=== PATIENT | female | born 1985 | race Caucasian/White ===

== ENCOUNTER 2016-08-05 13:14 | Emergency (ER) | payer MEDICAID ==
[~2016-08-05] VITALS: Ht 170.2 cm; Wt 106.5 kg
[2016-08-05] MEDS ORDERED: ONDANSETRON 2MG/ML, 2ML ONE (13:54)
[2016-08-05] MEDS ORDERED: SODIUM CHLORIDE FLUSH 10ML SYR IVF ONE (14:00)
[2016-08-05] MEDS ORDERED: ONDANSETRON 2MG/ML, 2ML IVPush ONE (14:00)
[2016-08-05] MEDS ORDERED: SODIUM CHLORIDE 0.9% 1,000ML IVBOLUS ONE (14:00)
[2016-08-05 15:35] VITALS: BP 133/85
[2016-08-05 15:43] LABS: BLOOD UREA NITROGEN 10 mg/dL (7-18)
== END 2016-08-05 16:10 | disposition home or self-care (01) ==
LOC: ED 14:08
DX: R10.32 Left lower quadrant pain (principal); M79.661 Pain in right lower leg; G89.29 Other chronic pain; Z86.718 Personal history of other venous thrombosis and embolism
CPT/HCPCS: 36415; 73590; 76830; 80048; 81003; 82040; 84703; 85025; 93971; 96361; 96374; 99285; J2405; J7030

== ENCOUNTER 2017-05-27 15:41 | Emergency (ER) | payer MEDICAID ==
[~2017-05-27] VITALS: Ht 170.2 cm; Wt 120.9 kg
[2017-05-27 16:26] LABS: CULTURE INDICATED? YES; MICROSCOPIC AUTO
[2017-05-27 16:35] LABS: BASOPHILS # (AUTO) 0.02 x10^3/uL (0-0.1); BASOPHILS % (AUTO) 0 % (0-1); EOSINOPHILS # (AUTO) 0.22 x10^3/uL (0-0.4); EOSINOPHILS % (AUTO) 4 % (1-7); LYMPHOCYTES # (AUTO) 1.96 x10^3/uL (1-3.4); LYMPHOCYTES % (AUTO) 33 % (22-44); MD NO; MEAN CORPUSCULAR HEMOGLOBIN 29.8 pg (27.0-34.8); MEAN CORPUSCULAR HGB CONC 34.1 g/dL (32.4-35.8); MEAN CORPUSCULAR VOLUME 87.3 fL (80-100); MEAN PLATELET VOLUME 9.8 fL (7.4-10.4); MONOCYTES # (AUTO) 0.54 x10^3/uL (0.2-0.8); MONOCYTES % (AUTO) 9 % (2-9); NEUTROPHILS # (AUTO) 3.13 x10^3/uL (1.8-6.8); NEUTROPHILS % (AUTO) 53 % (42-75); PLATELET COUNT 301 x10^3/uL (130-400); RED BLOOD COUNT 4.83 x10^6/uL (3.82-5.3); RED CELL DISTRIBUTION WIDTH 12.6 % (9.6-15.2)
[2017-05-27 16:44] LABS: ALANINE AMINOTRANSFERASE 28 U/L (12-78); ALBUMIN 3.5 g/dL (3.4-5.0); ANION GAP 4 mmol/L (5-15); CALCIUM 8.4 mg/dL (8.5-10.1); CHLORIDE 106 mmol/L (98-107); CREATININE 0.71 mg/dL (0.55-1.02)
[2017-05-27 16:49] LABS: ALKALINE PHOSPHATASE 68 U/L (45-117); BILIRUBIN,TOTAL 0.4 mg/dL (0.2-1.0); TOTAL PROTEIN 7.1 g/dL (6.4-8.2)
[2017-05-27 17:38] VITALS: BP 115/79
== END 2017-05-27 17:40 | disposition home or self-care (01) ==
LOC: ED 17:09
DX: N30.90 Cystitis, unspecified without hematuria (principal); R19.7 Diarrhea, unspecified; R11.0 Nausea
CPT/HCPCS: 36415; 80053; 81001; 83690; 84703; 85025; 87086; 87147; 99284

== ENCOUNTER 2017-09-25 16:42 | Emergency (ER) | payer MEDICAID ==
[~2017-09-25] VITALS: Ht 170.2 cm; Wt 117.6 kg
[2017-09-25 17:25] LABS: BASOPHILS # (AUTO) 0.02 x10^3/uL (0-0.1); BASOPHILS % (AUTO) 0 % (0-1); EOSINOPHILS # (AUTO) 0.14 x10^3/uL (0-0.4); EOSINOPHILS % (AUTO) 2 % (1-7); LYMPHOCYTES # (AUTO) 1.94 x10^3/uL (1-3.4); LYMPHOCYTES % (AUTO) 32 % (22-44); MD NO; MEAN CORPUSCULAR HEMOGLOBIN 29.9 pg (27.0-34.8); MEAN CORPUSCULAR HGB CONC 34.2 g/dL (32.4-35.8); MEAN CORPUSCULAR VOLUME 87.4 fL (80-100); MEAN PLATELET VOLUME 10.1 fL (7.4-10.4); MONOCYTES # (AUTO) 0.46 x10^3/uL (0.2-0.8); MONOCYTES % (AUTO) 8 % (2-9); NEUTROPHILS % (AUTO) 59 % (42-75); PLATELET COUNT 302 x10^3/uL (130-400); RED BLOOD COUNT 5.09 x10^6/uL (3.82-5.3); RED CELL DISTRIBUTION WIDTH 13.3 % (9.6-15.2)
[2017-09-25 17:31] LABS: ALANINE AMINOTRANSFERASE 47 U/L (12-78); ALBUMIN 3.7 g/dL (3.4-5.0); ANION GAP 6 mmol/L (5-15); CALCIUM 8.4 mg/dL (8.5-10.1); CHLORIDE 111 mmol/L (98-107); CREATININE 0.76 mg/dL (0.55-1.02)
[2017-09-25 17:35] LABS: ALKALINE PHOSPHATASE 55 U/L (45-117); BILIRUBIN,TOTAL 0.4 mg/dL (0.2-1.0); TOTAL PROTEIN 7.2 g/dL (6.4-8.2)
[2017-09-25 17:59] LABS: T4 (THYROXINE) 9.3 mcg/dL (4.8-13.9)
[2017-09-25 18:08] LABS: THYROID STIMULATING HORMONE 0.934 mIU/L (0.358-3.740)
[2017-09-25 18:11] LABS: CULTURE INDICATED? YES; MICROSCOPIC INDICATED
[2017-09-25 20:11] VITALS: BP 125/76
== END 2017-09-25 20:13 | disposition home or self-care (01) ==
LOC: ED 19:31
DX: O23.11 Infections of bladder in pregnancy, first trimester (principal); R42 Dizziness and giddiness; Z3A.00 Weeks of gestation of pregnancy not specified; I82.409 Acute embolism and thrombosis of unspecified deep veins of unspecified lower extremity
CPT/HCPCS: 36415; 76801; 80053; 81001; 83690; 84436; 84443; 84702; 84703; 85025; 87086; 93005; 99285

== ENCOUNTER 2017-09-26 20:08 | Emergency (ER) | payer MEDICAID ==
[~2017-09-26] VITALS: Ht 170.2 cm; Wt 110.0 kg
[2017-09-26] MEDS ORDERED: MECLIZINE CHEWABLE 25 MG TAB PO ONE (20:30)
[2017-09-26] MEDS ORDERED: MECLIZINE CHEWABLE 25 MG TAB ONE (20:32)
[2017-09-26 20:37] VITALS: BP 140/82
[2017-09-26 21:01] LABS: ALBUMIN 3.8 g/dL (3.4-5.0); ANION GAP 7 mmol/L (5-15); CALCIUM 8.8 mg/dL (8.5-10.1); CHLORIDE 110 mmol/L (98-107)
[2017-09-26 21:02] LABS: BASOPHILS # (AUTO) 0.02 x10^3/uL (0-0.1); BASOPHILS % (AUTO) 0 % (0-1); EOSINOPHILS # (AUTO) 0.07 x10^3/uL (0-0.4); EOSINOPHILS % (AUTO) 1 % (1-7); LYMPHOCYTES # (AUTO) 1.35 x10^3/uL (1-3.4); LYMPHOCYTES % (AUTO) 25 % (22-44); MD NO; MEAN CORPUSCULAR HEMOGLOBIN 29.5 pg (27.0-34.8); MEAN CORPUSCULAR HGB CONC 33.2 g/dL (32.4-35.8); MEAN CORPUSCULAR VOLUME 88.9 fL (80-100); MEAN PLATELET VOLUME 10.3 fL (7.4-10.4); MONOCYTES # (AUTO) 0.41 x10^3/uL (0.2-0.8); MONOCYTES % (AUTO) 8 % (2-9); NEUTROPHILS # (AUTO) 3.59 x10^3/uL (1.8-6.8); NEUTROPHILS % (AUTO) 66 % (42-75); PLATELET COUNT 285 x10^3/uL (130-400); RED CELL DISTRIBUTION WIDTH 13.1 % (9.6-15.2)
[2017-09-26 21:19] LABS: ALANINE AMINOTRANSFERASE 63 U/L (12-78); ALKALINE PHOSPHATASE 55 U/L (45-117); BILIRUBIN,TOTAL 0.4 mg/dL (0.2-1.0); CREATININE 0.68 mg/dL (0.55-1.02); TOTAL PROTEIN 6.9 g/dL (6.4-8.2)
== END 2017-09-27 00:47 | disposition home or self-care (01) ==
LOC: ED 21:29
DX: O26.891 Other specified pregnancy related conditions, first trimester (principal); R42 Dizziness and giddiness; O20.9 Hemorrhage in early pregnancy, unspecified; Z86.718 Personal history of other venous thrombosis and embolism; Z3A.00 Weeks of gestation of pregnancy not specified
CPT/HCPCS: 36415; 76830; 80053; 84702; 85025; 99285

== ENCOUNTER 2017-09-29 19:49 | Emergency (ER) | payer MEDICAID ==
[~2017-09-29] VITALS: Ht 170.2 cm; Wt 117.6 kg
[2017-09-29 19:51] VITALS: BP 149/97
[2017-09-29 20:34] LABS: BASOPHILS # (AUTO) 0.05 x10^3/uL (0-0.1); BASOPHILS % (AUTO) 1 % (0-1); EOSINOPHILS # (AUTO) 0.14 x10^3/uL (0-0.4); EOSINOPHILS % (AUTO) 2 % (1-7); LYMPHOCYTES # (AUTO) 1.61 x10^3/uL (1-3.4); LYMPHOCYTES % (AUTO) 24 % (22-44); MD NO; MEAN CORPUSCULAR HEMOGLOBIN 29.8 pg (27.0-34.8); MEAN CORPUSCULAR HGB CONC 33.8 g/dL (32.4-35.8); MEAN CORPUSCULAR VOLUME 88.2 fL (80-100); MEAN PLATELET VOLUME 10.2 fL (7.4-10.4); MONOCYTES # (AUTO) 0.48 x10^3/uL (0.2-0.8); MONOCYTES % (AUTO) 7 % (2-9); NEUTROPHILS # (AUTO) 4.58 x10^3/uL (1.8-6.8); NEUTROPHILS % (AUTO) 67 % (42-75); PLATELET COUNT 277 x10^3/uL (130-400); RED CELL DISTRIBUTION WIDTH 13.6 % (9.6-15.2)
== END 2017-09-29 21:31 | disposition home or self-care (01) ==
LOC: ED 20:15
DX: O26.891 Other specified pregnancy related conditions, first trimester (principal); O46.91 Antepartum hemorrhage, unspecified, first trimester; Z3A.01 Less than 8 weeks gestation of pregnancy
CPT/HCPCS: 36415; 76801; 84702; 85025; 99285

== ENCOUNTER 2017-11-18 08:54 | Emergency (ER) | payer MEDICAID ==
[~2017-11-18] VITALS: Ht 170.2 cm; Wt 110.0 kg
[2017-11-18] MEDS ORDERED: SODIUM CHLORIDE FLUSH 10ML SYR IVF ONE (09:30)
[2017-11-18] MEDS ORDERED: ASPIRIN 81 MG TABLET CHEW ONE (09:30)
[2017-11-18] MEDS ORDERED: MECLIZINE CHEWABLE 25 MG TAB ONE (09:30)
[2017-11-18] MEDS ORDERED: ASPIRIN 81 MG TABLET CHEW PO ONE (09:30)
[2017-11-18] MEDS ORDERED: SODIUM CHLORIDE 0.9% 1,000ML IVBOLUS ONE (09:30)
[2017-11-18] MEDS ORDERED: MECLIZINE CHEWABLE 25 MG TAB PO ONE (09:30)
[2017-11-18 09:37] LABS: BASOPHILS # (AUTO) 0.04 x10^3/uL (0-0.1); BASOPHILS % (AUTO) 1 % (0-1); EOSINOPHILS # (AUTO) 0.15 x10^3/uL (0-0.4); EOSINOPHILS % (AUTO) 2 % (1-7); LYMPHOCYTES # (AUTO) 2.15 x10^3/uL (1-3.4); LYMPHOCYTES % (AUTO) 30 % (22-44); MD NO; MEAN CORPUSCULAR HEMOGLOBIN 29.6 pg (27.0-34.8); MEAN CORPUSCULAR HGB CONC 33.8 g/dL (32.4-35.8); MEAN CORPUSCULAR VOLUME 87.5 fL (80-100); MEAN PLATELET VOLUME 10.4 fL (7.4-10.4); MONOCYTES # (AUTO) 0.42 x10^3/uL (0.2-0.8); MONOCYTES % (AUTO) 6 % (2-9); NEUTROPHILS % (AUTO) 61 % (42-75); PLATELET COUNT 263 x10^3/uL (130-400); RED BLOOD COUNT 4.74 x10^6/uL (3.82-5.3); RED CELL DISTRIBUTION WIDTH 12.6 % (9.6-15.2)
[2017-11-18 09:42] LABS: ALBUMIN 3.4 g/dL (3.4-5.0); ANION GAP 8 mmol/L (5-15); CALCIUM 9.1 mg/dL (8.5-10.1); CHLORIDE 109 mmol/L (98-107); CREATININE 0.59 mg/dL (0.55-1.02)
[2017-11-18 09:46] LABS: TROPONIN I < 0.015 ng/mL (0.000-0.045)
[2017-11-18 10:07] LABS: MICROSCOPIC AUTO
[2017-11-18 10:10] LABS: CULTURE INDICATED? YES
[2017-11-18 11:30] VITALS: BP 122/70
== END 2017-11-18 11:39 | disposition home or self-care (01) ==
LOC: ED 09:31
DX: R55 Syncope and collapse (principal); R53.1 Weakness; R07.9 Chest pain, unspecified; I10 Essential (primary) hypertension; Z86.718 Personal history of other venous thrombosis and embolism
CPT/HCPCS: 36415; 71045; 80048; 81001; 82040; 82962; 84484; 84703; 85025; 85379; 87086; 93005; 99285; J7030

== ENCOUNTER 2017-12-22 18:31 | Emergency (ER) | payer MEDICAID ==
[~2017-12-22] VITALS: Ht 175.3 cm; Wt 112.7 kg
[2017-12-22 18:43] VITALS: BP 148/93
[2017-12-22 19:34] LABS: BASOPHILS # (AUTO) 0.02 x10^3/uL (0-0.1); BASOPHILS % (AUTO) 0 % (0-1); EOSINOPHILS # (AUTO) 0.16 x10^3/uL (0-0.4); EOSINOPHILS % (AUTO) 3 % (1-7); LYMPHOCYTES % (AUTO) 36 % (22-44); MD NO; MEAN CORPUSCULAR HEMOGLOBIN 29.9 pg (27.0-34.8); MEAN CORPUSCULAR HGB CONC 34.4 g/dL (32.4-35.8); MEAN CORPUSCULAR VOLUME 86.9 fL (80-100); MONOCYTES # (AUTO) 0.39 x10^3/uL (0.2-0.8); MONOCYTES % (AUTO) 8 % (2-9); NEUTROPHILS # (AUTO) 2.77 x10^3/uL (1.8-6.8); NEUTROPHILS % (AUTO) 53 % (42-75); PLATELET COUNT 290 x10^3/uL (130-400); RED BLOOD COUNT 5.13 x10^6/uL (3.82-5.3); RED CELL DISTRIBUTION WIDTH 12.7 % (9.6-15.2)
[2017-12-22 19:36] LABS: ALBUMIN 3.8 g/dL (3.4-5.0); ANION GAP 7 mmol/L (5-15); CHLORIDE 109 mmol/L (98-107)
[2017-12-22 19:40] LABS: TROPONIN I < 0.015 ng/mL (0.000-0.045)
== END 2017-12-22 20:32 | disposition home or self-care (01) ==
LOC: ED 20:05
DX: R00.2 Palpitations (principal); R42 Dizziness and giddiness; I10 Essential (primary) hypertension; Z86.718 Personal history of other venous thrombosis and embolism
CPT/HCPCS: 36415; 71046; 80048; 82040; 84484; 85025; 93005; 99285

== ENCOUNTER 2018-02-28 19:53 | Emergency (ER) | payer MEDICAID ==
[~2018-02-28] VITALS: Ht 167.6 cm; Wt 106.0 kg
[2018-02-28 20:49] LABS: BASOPHILS # (AUTO) 0.04 x10^3/uL (0-0.1); BASOPHILS % (AUTO) 1 % (0-1); EOSINOPHILS # (AUTO) 0.12 x10^3/uL (0-0.4); EOSINOPHILS % (AUTO) 2 % (1-7); LYMPHOCYTES # (AUTO) 1.73 x10^3/uL (1-3.4); LYMPHOCYTES % (AUTO) 28 % (22-44); MD NO; MEAN CORPUSCULAR HGB CONC 34.2 g/dL (32.4-35.8); MEAN CORPUSCULAR VOLUME 87.8 fL (80-100); MONOCYTES # (AUTO) 0.41 x10^3/uL (0.2-0.8); MONOCYTES % (AUTO) 7 % (2-9); NEUTROPHILS # (AUTO) 3.77 x10^3/uL (1.8-6.8); NEUTROPHILS % (AUTO) 62 % (42-75); PLATELET COUNT 254 x10^3/uL (130-400); RED BLOOD COUNT 4.74 x10^6/uL (3.82-5.3)
[2018-02-28 20:57] LABS: ALBUMIN 3.5 g/dL (3.4-5.0); ANION GAP 6 mmol/L (5-15); CALCIUM 8.3 mg/dL (8.5-10.1); CHLORIDE 110 mmol/L (98-107); CREATININE 0.76 mg/dL (0.55-1.02)
[2018-02-28 21:01] LABS: TROPONIN I < 0.015 ng/mL (0.000-0.045)
[2018-02-28 22:30] VITALS: BP 136/91
== END 2018-02-28 22:32 | disposition home or self-care (01) ==
LOC: ED 21:58
DX: R07.89 Other chest pain (principal); R42 Dizziness and giddiness; I10 Essential (primary) hypertension
CPT/HCPCS: 36415; 71045; 80048; 82040; 84484; 84703; 85025; 93005; 99284

== ENCOUNTER 2018-04-10 18:34 | Emergency (ER) | payer MEDICAID ==
[~2018-04-10] VITALS: Ht 170.2 cm; Wt 113.7 kg
[2018-04-10] MEDS ORDERED: MULTI VIT (18:54)
[2018-04-10 19:18] LABS: BASOPHILS # (AUTO) 0.06 x10^3/uL (0-0.1); BASOPHILS % (AUTO) 1 % (0-1); EOSINOPHILS # (AUTO) 0.12 x10^3/uL (0-0.4); EOSINOPHILS % (AUTO) 2 % (1-7); LYMPHOCYTES # (AUTO) 1.54 x10^3/uL (1-3.4); LYMPHOCYTES % (AUTO) 29 % (22-44); MD NO; MEAN CORPUSCULAR HEMOGLOBIN 30.3 pg (27.0-34.8); MEAN CORPUSCULAR HGB CONC 34.4 g/dL (32.4-35.8); MEAN CORPUSCULAR VOLUME 88.2 fL (80-100); MEAN PLATELET VOLUME 9.8 fL (7.4-10.4); MONOCYTES # (AUTO) 0.37 x10^3/uL (0.2-0.8); MONOCYTES % (AUTO) 7 % (2-9); NEUTROPHILS % (AUTO) 60 % (42-75); PLATELET COUNT 296 x10^3/uL (130-400); RED BLOOD COUNT 4.95 x10^6/uL (3.82-5.3); RED CELL DISTRIBUTION WIDTH 12.8 % (9.6-15.2)
[2018-04-10 19:30] LABS: CHLORIDE 108 mmol/L (98-107)
--- NOTE | 2018-04-10 19:30 | NUR ---
FIRST CONTACT WITH PT. PT C/O DIZZINESS AND FATIGUE X 2 DAYS. PT DENIES ANY PAIN, V, D, FEVER, CP AT THIS TIME. PT AOX4. RESPS EVEN AND UNLABORED. NEURO INTACT. ALL MONITORS IN PLACE. CALL LIGHT WITHIN REACH.
[2018-04-10 19:31] LABS: ALANINE AMINOTRANSFERASE 22 U/L (12-78); ALBUMIN 3.8 g/dL (3.4-5.0); ANION GAP 6 mmol/L (5-15); CALCIUM 8.7 mg/dL (8.5-10.1); CREATININE 0.67 mg/dL (0.55-1.02)
[2018-04-10 19:33] LABS: ALKALINE PHOSPHATASE 74 U/L (45-117); BILIRUBIN,TOTAL 0.8 mg/dL (0.2-1.0); TOTAL PROTEIN 7.2 g/dL (6.4-8.2)
[2018-04-10] MEDS ORDERED: MECLIZINE CHEWABLE 25 MG TAB ONE (19:46)
--- NOTE | 2018-04-10 19:50 | NUR ---
PT MEDICATED PER EMAR. PT TOLERATED WELL. PT DENIES ANY PAIN, NEEDS AND CONCERNS AT THIS TIME. ALL MONITORS IN PLACE. CALL LIGHT WITHIN REACH.
[2018-04-10] MEDS ORDERED: MECLIZINE CHEWABLE 25 MG TAB PO ONE (20:00)
--- NOTE | 2018-04-10 20:43 | NUR ---
PRECEPTOR NOTE: LISY ALEXANDRE AT BEDSIDE TO UPDATE PT WITH POC AND RESULTS.
--- NOTE | 2018-04-10 20:43 | NUR ---
PT C/O DIZZINESS STILL AFTER MED. LIYS ALEXANDRE NOTIFIED AND AT BEDSIDE AT THIS TIME. LISY ALEXANDRE EXPLAINING ALL RESULTS. AWAITING DC NOW.
[2018-04-10 20:56] VITALS: BP 110/68
--- NOTE | 2018-04-10 21:03 | NUR ---
PT GIVEN DC INSTRCUTIONS AND SCRIPTS. PT EDUCATED REGARDING DC MEDICATIONS WHICH ARE ZOFRAN AND ANTIVERT AT DC. PT AMB TO DC WITH STEADY GAIT WITH PT'S . PT AOX4. RESPS EVEN AND UNLABORED. NO ACUTE DISTRESS AT DC.
== END 2018-04-10 20:58 | disposition home or self-care (01) ==
LOC: ED 19:03
DX: R42 Dizziness and giddiness (principal)
CPT/HCPCS: 36415; 80053; 85025; 93005; 99283; 99284

== ENCOUNTER 2018-04-26 18:59 | Emergency (ER) | payer MEDICAID ==
[~2018-04-26] VITALS: Ht 170.2 cm; Wt 112.0 kg
[~2018-04-26 18:59] MED LIST: MULTI VIT
--- NOTE | 2018-04-26 19:56 | NUR ---
PT ON VITALS MONITORS. PT IN HOSPITAL GOWN. FAMILY AT BEDSIDE. PT AWAITING ERP EVAL.
[2018-04-26] MEDS ORDERED: SODIUM CHLORIDE FLUSH 10ML SYR IVF ONE (20:30)
[2018-04-26 20:39] LABS: BASOPHILS # (AUTO) 0.05 x10^3/uL (0-0.1); BASOPHILS % (AUTO) 1 % (0-1); EOSINOPHILS # (AUTO) 0.11 x10^3/uL (0-0.4); EOSINOPHILS % (AUTO) 3 % (1-7); LYMPHOCYTES # (AUTO) 1.36 x10^3/uL (1-3.4); LYMPHOCYTES % (AUTO) 33 % (22-44); MD NO; MEAN CORPUSCULAR HEMOGLOBIN 29.4 pg (27.0-34.8); MEAN CORPUSCULAR VOLUME 89.1 fL (80-100); MONOCYTES # (AUTO) 0.34 x10^3/uL (0.2-0.8); MONOCYTES % (AUTO) 8 % (2-9); NEUTROPHILS # (AUTO) 2.33 x10^3/uL (1.8-6.8); NEUTROPHILS % (AUTO) 55 % (42-75); PLATELET COUNT 278 x10^3/uL (130-400); RED BLOOD COUNT 4.83 x10^6/uL (3.82-5.3); RED CELL DISTRIBUTION WIDTH 12.9 % (9.6-15.2)
[2018-04-26 20:46] LABS: ALANINE AMINOTRANSFERASE 16 U/L (12-78); ALBUMIN 3.6 g/dL (3.4-5.0); ANION GAP 4 mmol/L (5-15); CALCIUM 8.5 mg/dL (8.5-10.1); CHLORIDE 110 mmol/L (98-107); CREATININE 0.71 mg/dL (0.55-1.02)
[2018-04-26 20:51] LABS: ALKALINE PHOSPHATASE 57 U/L (45-117); BILIRUBIN,TOTAL 0.4 mg/dL (0.2-1.0); TOTAL PROTEIN 6.8 g/dL (6.4-8.2); TROPONIN I < 0.015 ng/mL (0.000-0.045)
--- NOTE | 2018-04-26 21:14 | NUR ---
PT ABLE TO PROVIDE URINE SAMPLE WHICH HAS BEEN SENT TO LAB.
[2018-04-26 21:34] LABS: MICROSCOPIC AUTO
[2018-04-26 21:35] LABS: CULTURE INDICATED? NO
[2018-04-26] MEDS ORDERED: MECLIZINE CHEWABLE 25 MG TAB PO ONE (22:00)
[2018-04-26 22:23] VITALS: BP 132/81
== END 2018-04-26 22:32 | disposition home or self-care (01) ==
LOC: ED 19:52
DX: R42 Dizziness and giddiness (principal); I10 Essential (primary) hypertension; Z86.718 Personal history of other venous thrombosis and embolism
CPT/HCPCS: 36415; 70450; 80053; 81001; 84484; 85025; 93005; 99284

== ENCOUNTER 2018-05-21 02:10 | Emergency (ER) | payer MEDICAID ==
[~2018-05-21] VITALS: Ht 170.2 cm; Wt 110.0 kg
[2018-05-21 02:19] VITALS: BP 147/96
[2018-05-21 02:37] LABS: BASOPHILS # (AUTO) 0.02 x10^3/uL (0-0.1); BASOPHILS % (AUTO) 0 % (0-1); EOSINOPHILS # (AUTO) 0.19 x10^3/uL (0-0.4); EOSINOPHILS % (AUTO) 3 % (1-7); LYMPHOCYTES # (AUTO) 2.07 x10^3/uL (1-3.4); LYMPHOCYTES % (AUTO) 35 % (22-44); MD NO; MEAN CORPUSCULAR HEMOGLOBIN 30.3 pg (27.0-34.8); MEAN CORPUSCULAR HGB CONC 34.1 g/dL (32.4-35.8); MEAN PLATELET VOLUME 10.4 fL (7.4-10.4); MONOCYTES # (AUTO) 0.46 x10^3/uL (0.2-0.8); MONOCYTES % (AUTO) 8 % (2-9); NEUTROPHILS # (AUTO) 3.22 x10^3/uL (1.8-6.8); NEUTROPHILS % (AUTO) 54 % (42-75); PLATELET COUNT 252 x10^3/uL (130-400); RED BLOOD COUNT 4.68 x10^6/uL (3.82-5.3); RED CELL DISTRIBUTION WIDTH 13.2 % (9.6-15.2)
[2018-05-21 02:46] LABS: ALBUMIN 3.7 g/dL (3.4-5.0); ANION GAP 5 mmol/L (5-15); CALCIUM 8.2 mg/dL (8.5-10.1); CHLORIDE 112 mmol/L (98-107)
[2018-05-21 02:50] LABS: TROPONIN I < 0.015 ng/mL (0.000-0.045)
== END 2018-05-21 04:39 ==
LOC: ED 04:33
DX: R07.89 Other chest pain (principal); I10 Essential (primary) hypertension
CPT/HCPCS: 36415; 71045; 80048; 82040; 84484; 85025; 93005; 99284

== ENCOUNTER 2018-06-15 03:01 | Emergency (ER) | payer MEDICAID ==
[~2018-06-15] VITALS: Ht 170.2 cm; Wt 102.0 kg
[2018-06-15 03:10] VITALS: BP 122/77
--- NOTE | 2018-06-15 03:22 | NUR ---
THROBBING HEADACHE, WORSE WHEN STANDING. NO VISUAL CHANGES. STATES RECENTLY DX WITH WITH PODS, SUFFERS DIZZINESS WHEN STANDING. MD AT BESIDE, CALL LIGHT IN REACH
[2018-06-15] MEDS ORDERED: DIPHENHYDRAMINE 50 MG/ML, 1ML ONE (03:27)
[2018-06-15] MEDS ORDERED: KETOROLAC 30 MG/1 ML ONE (03:27)
[2018-06-15] MEDS ORDERED: METOCLOPRAMIDE 10MG TABLET ONE (03:27)
[2018-06-15] MEDS ORDERED: KETOROLAC 30 MG/1 ML IM ONE (03:30)
[2018-06-15] MEDS ORDERED: METOCLOPRAMIDE 10MG TABLET PO ONE (03:30)
[2018-06-15] MEDS ORDERED: DIPHENHYDRAMINE 50 MG/ML, 1ML IM ONE (03:30)
--- NOTE | 2018-06-15 03:40 | NUR ---
PT REFUSED MEDS, STATES THEY MAKE HER HEART RATE GO UP, WANTS TYLENOL INSTEAD, NOTIFIED
[2018-06-15] MEDS ORDERED: ACETAMINOPHEN 325 MG TABLET ONE (03:44)
[2018-06-15] MEDS ORDERED: ACETAMINOPHEN 325 MG TABLET PO ONE (04:00)
--- NOTE | 2018-06-15 04:13 | NUR ---
Patient/Caregiver given discharge instructions and they have confirmed that they understand the instructions. Patient ambulatory with steady gait.
== END 2018-06-15 04:15 | disposition home or self-care (01) ==
LOC: ED 04:00
DX: G43.C0 Periodic headache syndromes in child or adult, not intractable (principal); I10 Essential (primary) hypertension
CPT/HCPCS: 99283

== ENCOUNTER 2018-11-04 17:40 | Emergency (ER) | payer MEDICAID ==
[~2018-11-04] VITALS: Ht 170.2 cm; Wt 107.0 kg
[2018-11-04 18:57] VITALS: BP 124/79
== END 2018-11-04 19:25 | disposition home or self-care (01) ==
LOC: ED 19:05
DX: R55 Syncope and collapse (principal); R42 Dizziness and giddiness; R11.0 Nausea; I10 Essential (primary) hypertension; Z86.718 Personal history of other venous thrombosis and embolism
CPT/HCPCS: 36415; 80048; 82040; 84703; 85025; 93005; 99284

== ENCOUNTER 2019-01-20 00:38 | Emergency (ER) | payer MEDICAID ==
[~2019-01-20] VITALS: Ht 170.2 cm; Wt 114.0 kg
--- NOTE | 2019-01-20 00:43 | NUR ---
TONNY HARRIS FROM HER APARTMENT WITH C/I MID LOWER BACK PAIN X 1 MONTH, WORSE TODAY. PT SAW PMD 01/16/19 FOR SPECIALIST REFERRAL AND APPOINTMENT WILL BE 1 YEAR OUT. MONITORS APPLIED, SIDERAILS UP X2, CALL LIGHT WITHIN REACH
[2019-01-20 00:46] VITALS: BP 134/82
== END 2019-01-20 02:40 | disposition home or self-care (01) ==
LOC: ED 02:30
DX: G89.29 Other chronic pain (principal); M54.16 Radiculopathy, lumbar region; I10 Essential (primary) hypertension; F43.10 Post-traumatic stress disorder, unspecified; Z86.718 Personal history of other venous thrombosis and embolism
CPT/HCPCS: 72110; 99283

== ENCOUNTER 2019-01-24 19:02 | Emergency (ER) | payer MEDICAID ==
[~2019-01-24] VITALS: Ht 162.6 cm; Wt 109.0 kg
[2019-01-24 19:14] VITALS: BP 141/86
--- NOTE | 2019-01-24 19:24 | NUR ---
Pt would not like to be roomed and would not like to be seen. Pt is leaving and does not want to be seen by an md. This rn educated and pt still refusing. "i just needed to get my blood pressure checked, it looks like its all good."
== END 2019-01-24 19:26 | disposition left against medical advice (07) ==
LOC: ED 19:20
DX: R42 Dizziness and giddiness (principal); Z53.21 Procedure and treatment not carried out due to patient leaving prior to being seen by health care provider
CPT/HCPCS: 93005

== ENCOUNTER 2019-04-24 17:01 | Emergency (ER) | payer MEDICAID ==
[~2019-04-24] VITALS: Ht 170.2 cm; Wt 119.5 kg
--- NOTE | 2019-04-24 17:23 | NUR ---
FIRST CONTACT WITH PT. PT C/O DIZZINESS, FATIGUE AND HEART PALPITATIONS WORSENING OVER THE LAST COUPLE DAYS. HX POTS. PT'S AOX4. RESPS EVEN AND UNLABORED. ALL MONITORS IN PLACE. CALL LIGHT WITHIN REACH. NSR RATE 80'S ON INFORMATION SYSTEMS MANAGER AT THIS TIME.
[2019-04-24] MEDS ORDERED: SODIUM CHLORIDE 0.9% 1,000ML IVBOLUS ONE (17:30)
[2019-04-24] MEDS ORDERED: MECLIZINE CHEWABLE 25 MG TAB PO ONE (17:30)
[2019-04-24] MEDS ORDERED: SODIUM CHLORIDE FLUSH 10ML SYR IVF ONE (17:30)
--- NOTE | 2019-04-24 17:35 | NUR ---
EKG DONE AT BEDSIDE BY EMT.
--- NOTE | 2019-04-24 17:42 | NUR ---
PT REFUSED MEDICATIONS. PT STATES"I DON'T WANNA TAKE ANY MEDS. JUST FLUIDS."
--- NOTE | 2019-04-24 17:54 | NUR ---
PT AMB TO BR AND BACK TO ROOM WITH STEDAY GAIT. UA SENT.
--- NOTE | 2019-04-24 17:54 | NUR ---
NS INFUSING AT THIS TIME. PT TOLERATED WELL.
[2019-04-24 18:14] LABS: MICROSCOPIC NOT IND
[2019-04-24 18:17] LABS: BASOPHILS # (AUTO) 0.05 x10^3/uL (0-0.1); BASOPHILS % (AUTO) 1 % (0-1); EOSINOPHILS # (AUTO) 0.13 x10^3/uL (0-0.4); EOSINOPHILS % (AUTO) 2 % (1-7); LYMPHOCYTES # (AUTO) 2.11 x10^3/uL (1-3.4); LYMPHOCYTES % (AUTO) 33 % (22-44); MD NO; MEAN CORPUSCULAR HEMOGLOBIN 29.9 pg (27.0-34.8); MEAN CORPUSCULAR HGB CONC 33.6 g/dL (32.4-35.8); MEAN CORPUSCULAR VOLUME 88.9 fL (80-100); MEAN PLATELET VOLUME 10.8 fL (7.4-10.4); MONOCYTES # (AUTO) 0.43 x10^3/uL (0.2-0.8); MONOCYTES % (AUTO) 7 % (2-9); NEUTROPHILS # (AUTO) 3.74 x10^3/uL (1.8-6.8); NEUTROPHILS % (AUTO) 58 % (42-75); PLATELET COUNT 278 x10^3/uL (130-400); RED BLOOD COUNT 5.12 x10^6/uL (3.82-5.3); RED CELL DISTRIBUTION WIDTH 13.4 % (9.6-15.2)
[2019-04-24 18:17] LABS: CULTURE INDICATED? NO
[2019-04-24 18:22] LABS: ALBUMIN 3.9 g/dL (3.4-5.0); ANION GAP 3 mmol/L (5-15); CALCIUM 8.9 mg/dL (8.5-10.1); CHLORIDE 109 mmol/L (98-107); CREATININE 0.68 mg/dL (0.55-1.02)
[2019-04-24 18:24] VITALS: BP 141/83
[2019-04-24] MEDS ORDERED: PLEASE ENTER ALLERGIES MC SCH (18:30)
--- NOTE | 2019-04-24 18:34 | NUR ---
PT RESTING IN [facility]. PT'S AOX4. RESPS EVEN AND UNLABORED. ALL MONITORS IN PLACE. CALL LIGHT WITHIN REACH.
--- NOTE | 2019-04-24 18:54 | NUR ---
REPORT GIVEN TO CEE AVILA.
== END 2019-04-24 19:22 | disposition home or self-care (01) ==
LOC: ED 18:33
DX: R42 Dizziness and giddiness (principal); R00.2 Palpitations; F43.10 Post-traumatic stress disorder, unspecified
CPT/HCPCS: 36415; 80048; 81003; 82040; 84703; 85025; 93005; 96360; 99284; J7030

== ENCOUNTER 2019-05-02 23:31 | Emergency (ER) | payer MEDICAID ==
[~2019-05-02] VITALS: Ht 170.2 cm; Wt 115.0 kg
[2019-05-02 23:34] VITALS: BP 121/96
--- NOTE | 2019-05-02 23:41 | NUR ---
Patient BIB [facility] c/o dizziness and intermittent CP. Patient states she has a hx of POTS and feels dizzy often. Normally she lays down and the dizziness resides, but today it did not and she felt intermittent CP with it. Pain increased when walking and upon palpation. Patient is in NAD. Respirations even and unlabored.
[2019-05-02 23:49] LABS: BASOPHILS # (AUTO) 0.01 x10^3/uL (0-0.1); BASOPHILS % (AUTO) 0 % (0-1); EOSINOPHILS # (AUTO) 0.12 x10^3/uL (0-0.4); EOSINOPHILS % (AUTO) 2 % (1-7); LYMPHOCYTES # (AUTO) 2.32 x10^3/uL (1-3.4); LYMPHOCYTES % (AUTO) 34 % (22-44); MD NO; MEAN CORPUSCULAR HEMOGLOBIN 30.1 pg (27.0-34.8); MEAN CORPUSCULAR HGB CONC 34.2 g/dL (32.4-35.8); MEAN CORPUSCULAR VOLUME 87.9 fL (80-100); MEAN PLATELET VOLUME 9.6 fL (7.4-10.4); MONOCYTES # (AUTO) 0.52 x10^3/uL (0.2-0.8); MONOCYTES % (AUTO) 8 % (2-9); NEUTROPHILS # (AUTO) 3.84 x10^3/uL (1.8-6.8); NEUTROPHILS % (AUTO) 56 % (42-75); PLATELET COUNT 292 x10^3/uL (130-400); RED BLOOD COUNT 4.79 x10^6/uL (3.82-5.3); RED CELL DISTRIBUTION WIDTH 12.9 % (9.6-15.2)
[2019-05-03 00:02] LABS: ANION GAP 7 mmol/L (5-15); CALCIUM 8.8 mg/dL (8.5-10.1); CHLORIDE 110 mmol/L (98-107); CREATININE 0.62 mg/dL (0.55-1.02)
[2019-05-03 00:06] LABS: TROPONIN I < 0.015 ng/mL (0.000-0.045)
--- NOTE | 2019-05-03 00:34 | NUR ---
Discharge instructions given. All questions and concerns addressed. Patient ambulatory with a steady gait. Belongings with patient.
== END 2019-05-03 00:35 | disposition home or self-care (01) ==
LOC: ED 05-03
DX: R42 Dizziness and giddiness (principal); R07.89 Other chest pain; I10 Essential (primary) hypertension; Z86.718 Personal history of other venous thrombosis and embolism
CPT/HCPCS: 36415; 71046; 80048; 84484; 85025; 93005; 99284

== ENCOUNTER 2019-05-09 23:51 | Emergency (ER) | payer MEDICAID ==
[~2019-05-09] VITALS: Ht 170.2 cm; Wt 120.6 kg
[2019-05-10] MEDS ORDERED: ACETAMINOPHEN 325 MG TABLET PO ONE
[2019-05-10 00:01] VITALS: BP 141/87
[2019-05-10 00:16] LABS: BASOPHILS # (AUTO) 0.04 x10^3/uL (0-0.1); BASOPHILS % (AUTO) 1 % (0-1); EOSINOPHILS # (AUTO) 0.13 x10^3/uL (0-0.4); EOSINOPHILS % (AUTO) 2 % (1-7); LYMPHOCYTES # (AUTO) 2.51 x10^3/uL (1-3.4); LYMPHOCYTES % (AUTO) 33 % (22-44); MD NO; MEAN CORPUSCULAR VOLUME 88.2 fL (80-100); MEAN PLATELET VOLUME 9.8 fL (7.4-10.4); MONOCYTES # (AUTO) 0.57 x10^3/uL (0.2-0.8); MONOCYTES % (AUTO) 7 % (2-9); NEUTROPHILS # (AUTO) 4.38 x10^3/uL (1.8-6.8); NEUTROPHILS % (AUTO) 57 % (42-75); PLATELET COUNT 297 x10^3/uL (130-400); RED BLOOD COUNT 4.85 x10^6/uL (3.82-5.3); RED CELL DISTRIBUTION WIDTH 12.8 % (9.6-15.2)
[2019-05-10 00:24] LABS: ALBUMIN 3.5 g/dL (3.4-5.0); ANION GAP 5 mmol/L (5-15); CALCIUM 8.8 mg/dL (8.5-10.1); CHLORIDE 109 mmol/L (98-107); CREATININE 0.74 mg/dL (0.55-1.02)
[2019-05-10] MEDS ORDERED: ACETAMINOPHEN 325 MG TABLET ONE (00:29)
[2019-05-10 00:31] LABS: HCG UR SG 1.024 (1.003-1.030); MICROSCOPIC NOT IND
[2019-05-10 00:33] LABS: CULTURE INDICATED? NO
--- NOTE | 2019-05-10 00:33 | NUR ---
break rn: pt refused tylenol at this time
== END 2019-05-10 01:43 | disposition home or self-care (01) ==
LOC: ED 05-10 00:10
DX: R10.30 Lower abdominal pain, unspecified (principal); R07.89 Other chest pain; R42 Dizziness and giddiness; I10 Essential (primary) hypertension; Z86.718 Personal history of other venous thrombosis and embolism
CPT/HCPCS: 36415; 80048; 81003; 81025; 82040; 85025; 93005; 99284

== ENCOUNTER 2019-12-05 17:46 | Emergency (ER) | payer SELFPAY ==
[~2019-12-05] VITALS: Ht 170.2 cm; Wt 134.9 kg
--- NOTE | 2019-12-05 18:00 | NUR ---
PT PLACED ON ALL ROOM MONITORING. EKG COMPLETED ON ARRIVAL. PT DENIES PAIN, STATES ONLY SOB WHICH IS DIFFERENT "FROM NORMAL SOB". CALL LIGHT WITHIN REACH.
[2019-12-05 18:34] LABS: BASOPHILS # (AUTO) 0.02 x10^3/uL (0-0.1); BASOPHILS % (AUTO) 0 % (0-1); EOSINOPHILS # (AUTO) 0.24 x10^3/uL (0-0.4); EOSINOPHILS % (AUTO) 4 % (1-7); LYMPHOCYTES # (AUTO) 1.87 x10^3/uL (1-3.4); LYMPHOCYTES % (AUTO) 32 % (22-44); MD NO; MEAN CORPUSCULAR HEMOGLOBIN 29.2 pg (27.0-34.8); MEAN CORPUSCULAR HGB CONC 33.5 g/dL (32.4-35.8); MEAN CORPUSCULAR VOLUME 87.1 fL (80-100); MEAN PLATELET VOLUME 9.3 fL (7.4-10.4); MONOCYTES # (AUTO) 0.56 x10^3/uL (0.2-0.8); MONOCYTES % (AUTO) 9 % (2-9); NEUTROPHILS # (AUTO) 3.24 x10^3/uL (1.8-6.8); NEUTROPHILS % (AUTO) 55 % (42-75); PLATELET COUNT 312 x10^3/uL (130-400); RED BLOOD COUNT 4.68 x10^6/uL (3.82-5.3); RED CELL DISTRIBUTION WIDTH 12.9 % (9.6-15.2)
[2019-12-05 18:44] LABS: ALANINE AMINOTRANSFERASE 36 U/L (12-78); ALBUMIN 3.3 g/dL (3.4-5.0); ANION GAP 6 mmol/L (5-15); CALCIUM 8.7 mg/dL (8.5-10.1); CHLORIDE 108 mmol/L (98-107); CREATININE 0.75 mg/dL (0.55-1.02)
[2019-12-05 18:48] LABS: ALKALINE PHOSPHATASE 75 U/L (45-117); BILIRUBIN,TOTAL 0.3 mg/dL (0.2-1.0); TOTAL PROTEIN 6.8 g/dL (6.4-8.2)
--- NOTE | 2019-12-05 18:57 | NUR ---
BEDSIDE REPORT FROM MARGARITA VERDUGO. PT SITTING IN BED, NO SIGNS OF ACUTE DISTRESS, CONNECTED TO CARDIAC, BP AND O2 MONITORS. CALL LIGHT IN REACH, VISITOR IN ROOM, BEDRAILS UP X2.
--- NOTE | 2019-12-05 18:59 | NUR ---
REPORT TO YAZMIN, TRANSFER OF CARE AT THIS TIME.
[2019-12-05 19:58] VITALS: BP 142/84
--- NOTE | 2019-12-05 19:59 | NUR ---
PT WAS UP TO BATHROOM WITH ASSIST FROM VISITOR. PT BACK IN BED CONNECTED TO MONITORS, ALL NEEDS MET AT THIS TIME. CALL LIGHT REMAINS IN REACH.
== END 2019-12-05 20:44 | disposition home or self-care (01) ==
LOC: ED 18:16
DX: R06.02 Shortness of breath (principal); R21 Rash and other nonspecific skin eruption; T42.1X5A Adverse effect of iminostilbenes, initial encounter; I10 Essential (primary) hypertension; Z86.718 Personal history of other venous thrombosis and embolism; Y92.89 Other specified places as the place of occurrence of the external cause
CPT/HCPCS: 36415; 71045; 80053; 84703; 85025; 93005; 99285

== ENCOUNTER 2020-03-21 23:32 | Emergency (ER) | payer MEDICAID ==
[~2020-03-21] VITALS: Ht 170.2 cm; Wt 135.0 kg
--- NOTE | 2020-03-22 00:02 | NUR ---
Pt tx to xray via sam.
--- NOTE | 2020-03-22 00:13 | NUR ---
Back from xray, call manan neves.
--- NOTE | 2020-03-22 00:49 | NUR ---
No distress, waiting for erp evaluation/dispo.
[2020-03-22] MEDS ORDERED: IBUPROFEN 200 MG TABLET ONE (01:14)
[2020-03-22 01:21] VITALS: BP 135/74
[2020-03-22] MEDS ORDERED: IBUPROFEN 600 MG TABLET PO ONE (01:30)
== END 2020-03-22 01:24 | disposition home or self-care (01) ==
LOC: ED 03-22 00:19
DX: S29.011A Strain of muscle and tendon of front wall of thorax, initial encounter (principal); I10 Essential (primary) hypertension; X58.XXXA Exposure to other specified factors, initial encounter; Y93.89 Activity, other specified; Y92.89 Other specified places as the place of occurrence of the external cause; Y99.8 Other external cause status
CPT/HCPCS: 72072; 93005; 99283

== ENCOUNTER 2020-12-23 16:11 | Emergency (ER) | payer MEDICAID ==
[~2020-12-23] VITALS: Ht 170.2 cm; Wt 146.0 kg
[2020-12-23 17:22] LABS: BASOPHILS % (AUTO) 1 % (0-1); EOSINOPHILS % (AUTO) 3 % (1-7); LYMPHOCYTES % (AUTO) 30 % (22-44); MEAN CORPUSCULAR HEMOGLOBIN 29.8 pg (27.0-34.8); MEAN CORPUSCULAR HGB CONC 34.2 g/dL (32.4-35.8); MONOCYTES % (AUTO) 8 % (2-9); NEUTROPHILS % (AUTO) 58 % (42-75); PLATELET COUNT 292 x10^3/uL (130-400); RED BLOOD COUNT 4.86 x10^6/uL (3.82-5.3)
[2020-12-23 17:31] LABS: ALANINE AMINOTRANSFERASE 31 U/L (12-78); ALBUMIN 3.2 g/dL (3.4-5.0); CALCIUM 8.7 mg/dL (8.5-10.1); CHLORIDE 106 mmol/L (98-107); CREATININE 0.54 mg/dL (0.55-1.02)
[2020-12-23 17:39] LABS: ALKALINE PHOSPHATASE 72 U/L (45-117); ANION GAP 4 mmol/L (5-15); BILIRUBIN,TOTAL 0.3 mg/dL (0.2-1.0)
[2020-12-23 18:27] VITALS: BP 137/77
== END 2020-12-23 18:29 | disposition home or self-care (01) ==
LOC: ED 16:16
DX: R42 Dizziness and giddiness (principal); R53.1 Weakness; R00.0 Tachycardia, unspecified; H57.89 Other specified disorders of eye and adnexa; I10 Essential (primary) hypertension
CPT/HCPCS: 36415; 80053; 84703; 85025; 93005; 99284